=== PATIENT | male | born 1980 | race Two or more races ===

== ENCOUNTER 2024-03-30 17:05 | Emergency (ER) | payer OTHER ==
[~2024-03-30] VITALS: Ht 180.3 cm; Wt 120.8 kg
[2024-03-30] MEDS ORDERED: IBUP-1455 PO (18:45)
[2024-03-30 18:59] VITALS: PULSE 98; RESP 19; O2SAT 99
[2024-03-30 19:04] VITALS: BP 146/110; PULSE 86; RESP 19; TEMP 97.9; O2SAT 99
== END 2024-03-30 19:06 | disposition home or self-care (01) ==
LOC: ER 17:05
DX: S62.632A Displaced fracture of distal phalanx of right middle finger, initial encounter for closed fracture (principal); X58.XXXA Exposure to other specified factors, initial encounter; Y93.89 Activity, other specified; Y92.89 Other specified places as the place of occurrence of the external cause; Y99.8 Other external cause status
CPT/HCPCS: 29130; 73140